=== PATIENT | female | born 1960 | race Hispanic/Latino ===

== ENCOUNTER → 2020-01-28 | Day surgery (SDC) | payer OTHER ==
[2020-01-23 14:36] LABS: ANION GAP 9.9 mmol/L (8-16); BLOOD UREA NITROGEN 16 mg/dL (7-26); BUN/CREATININE RATIO 23 (6-25); CALCIUM 10.4 mg/dL (8.4-10.2); CARBON DIOXIDE 27 mmol/L (22-29); CHLORIDE 104 mmol/L (98-107); EST GLOMERULAR FILTRATION RATE > 60 ML/MIN (60-); GLUCOSE 98 mg/dL (74-118); POTASSIUM 3.9 mmol/L (3.5-5.1); SODIUM 137 mmol/L (136-145)
[~2020-01-28] MED LIST: ACETAMINOPHEN 1000 MG/100 ML 100 ML IV ONE; ACETAMINOPHEN 1000 MG/100 ML IV ONE; ACETAMINOPHEN/CODEINE 300MG - 30MG TAB ONE; ACETAMINOPHEN325 M1 PO; CEFAZOLIN SOD 1 GM/NS 50ML 50 ML IV ONE; DEXAMETHASONE SOD PHOS INJ 4 MG/ML VIAL ONE; FENTANYL CITRATE/PF 100MCG/2 ML INJ ONE; LEVOTHYROXINE100 MC1 PO; LIDOCAINE HCL 2% LOCAL INJ 5 ML SDV VIAL INJ ONE; LIPITOR10 MG PO; LISINOPRIL10 MG PO; METFORMIN HCL500 MG PO; NAPROXEN250 MG PO; ONDANSETRON HCL INJ 2MG/ML 2ML 2 MG/ML VIAL ONE; PROPOFOL IV EMULSION 10 MG/ML 20 ML VIAL ONE; SEVOFLURANE INHAL SOLN 250 ML PEN BTL ONE
--- NOTE | 2020-01-28 09:58 | Operative Report ---
DATE OF PROCEDURE: 01/28/2020 SURGEON: Sonny Cano MD BULK LOADER: Anthony Montesinos, certified PA. PREOPERATIVE DIAGNOSIS: Right distal radius fracture. POSTOPERATIVE DIAGNOSIS: Right distal radius fracture. PROCEDURE: Closed reduction, percutaneous pin fixation, right distal radius. INDICATIONS: The patient is a 59-year-old lady, who has a fracture of her right distal radius. This involves the articular surface and there is some depression of the joint surface. The findings and options have been discussed. We have recommended that an attempt at a closed reduction and percutaneous pinning with the backup of an open reduction with internal fixation. The risks and benefits have all been discussed. The patient states she understands and wishes to proceed. PROCEDURE IN DETAIL: The patient was brought to the operating room and placed under general anesthetic. Her right upper extremity was prepped and draped in a sterile manner. A preoperative time-out was performed. A C-arm image intensifier was used to assist in performing a closed reduction. It appeared that the articular surface reduced nicely. Two K-wires were placed from the radial styloid into the radial shaft. Intraoperative x-rays confirmed satisfactory positioning of the pins and reduction of the distal radius. The pins were cut short and capped. A sterile bandage and a sugar-tong splint were applied. The patient was extubated and transported to the recovery room in stable condition. There was no blood loss and all needle and sponge counts were correct. Sonny Cano MD DR/KARON /[id number]
[2020-01-28 10:45] VITALS: BP 152/81
== END | disposition home or self-care (01) ==
LOC: OR 07:55
PROVIDERS: ATTEND Specialist
DX: S52.571A Other intraarticular fracture of lower end of right radius, initial encounter for closed fracture (principal); E11.9 Type 2 diabetes mellitus without complications; I10 Essential (primary) hypertension; E03.9 Hypothyroidism, unspecified; R00.1 Bradycardia, unspecified; W18.30XA Fall on same level, unspecified, initial encounter; Y92.008 Other place in unspecified non-institutional (private) residence as the place of occurrence of the external cause; Z01.810 Encounter for preprocedural cardiovascular examination; Z01.812 Encounter for preprocedural laboratory examination; Z11.59 Encounter for screening for other viral diseases; Z79.84 Long term (current) use of oral hypoglycemic drugs
CPT/HCPCS: 25606; 36415 ×2; 80048; 82948; 93005; C1713; J0131; J0690; J1100; J2001; J2405; J2704; J3010; U0002; 76000